=== PATIENT | male | born 1995 | race Caucasian/White ===

== ENCOUNTER 2023-06-12 10:20 | Outpatient (AMB) | payer BC, SELFPAY ==
--- NOTE | 2023-06-12 10:13 | AM.OFFWIN_ITS ---
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 Breathing/Sharp pain Intake Note: pt is here today for diff breathing and sharp pain started today Patient Tobacco Use Status: Never used Tobacco Allergies No Known Allergies Allergy (Verified 06/12/23 10:26) Do you need a note to return to daycare/school/sports/work: Yes HPI HPI Comments History of Present Illness Details 28-year-old male with no past medical hi story presents to the walk-in today complaining of reproducible left-sided chest pain He reports pain was present when he woke up this morning, 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 and states that while he was carrying some heavy pipes the pain became worse Increased pain with overhead reach and with deep inspiration Denies radiation of the pain to the arm jaw or back Denies nausea, vomiting, diarrhea, headaches, palpitations, weakness, dizziness, shortness of breath Denies any recent illnesses Patient does not currently take any medications PFSH Social History Patient Tobacco Use Status: Never used Tobacco Review of Systems Const All systems reviewed & are unremarkable except as noted in HPI and below Physical Exam Vital Signs: Last Vital Signs Temp 97.0 F 06/12/23 10:23 Pulse 79 06/12/23 10:23 BP 140/80 H 06/12/23 10:23 Pulse Ox 96 06/12/23 10:23 Oxygen Delivery Method Room Air 06/12/23 10:23 BMI result Body Mass Index 38.8 General: awake, alert, oriented. Answers questions appropriately. Fully engaged in examination. Skin: warm, dry, intact HEENT: Normocephalic. Hearing intact. Cardiac: External chest normal in appearance. RRR. Left chest: Tender to palpation; pain reproducible with left arm overhead reach and deep breath Respiratory: No cough, audible wheezing or stridor. Lung sounds clear to auscultation bilaterally. Abdomen: without gross distension. MS: No obvious swelling or deformities. Neurological: Oriented to person, place, time and situation. Thought process intact. Psychiatric: Appropriate mood and affect. Good judgment and insight. Office Procedures EKG Details: Normal sinus rhythm 32706-[id number], Complete Results Reviewed Results Reviewed: Chest x-ray ordered and independently reviewed: Negative for infiltrate or effusion Assessment & Plan Assessment & Plan (1) Chest pain made worse by breathing: Code(s): R07.1 - Chest pain on breathing Plan EKG reviewed: normal sinus rhythm Chest x-ray ordered independently reviewed: Negative for effusion or infiltrate Patient with left-sided chest pain, non radiating, reproducible with deep breath, palpation and overhead reach with the left arm. Patient with no significant family history of cardiac disease, no past medical history, nonsmoker. Reassurance provided, pain appears to be musculoskeletal in nature. Tylenol or Motrin as needed Patient advised on red flag symptoms and when to seek treatment in the emergency room. Follow-up with PCP or return to the walk-in as needed. Orders: Orders AMB EKG-In Office Today R07.1 - Chest pain on breathing XR chest 2V Today R07.1 - Chest pain on breathing Coding Level of Care Code New Pt Level 4 (61100) Diagnoses Chest pain made worse by breathing R07.1 CPT Codes EKG - CPT: 93784-[id number], Complete ([id number])
[2023-06-12 10:23] VITALS: BP 140/80; PULSE 79; TEMP 36.1; O2SAT 96; BMI 38.8
== END 2023-06-12 12:33 | disposition home or self-care (01) ==
PROVIDERS: Visit Provider Registered Nurse Emergency
DX: R07.1 Chest pain on breathing (principal)
CPT/HCPCS: 93000; 99204

== ENCOUNTER 2023-06-12 11:06 | Outpatient (REF) | payer BC, SELFPAY ==
--- NOTE | ~2023-06-12 | XR_ITS ---
EXAMINATION: XR CHEST CLINICAL INFORMATION: Chest pain with breathing COMPARISON: None available. TECHNIQUE: 2 views of the chest were obtained. FINDINGS: No significant abnormality is noted involving the heart, lungs, mediastinum, bony thorax or soft tissues. XR/XR chest 2V IMPRESSION: Unremarkable examination.
== END 2023-06-12 11:07 | disposition home or self-care (01) ==
LOC: HO.HMGCX 11:06
PROVIDERS: Visit Provider Registered Nurse Emergency
DX: R07.1 Chest pain on breathing (principal)
CPT/HCPCS: 71046